=== PATIENT | female | born 1955 | race Two or more races ===

== ENCOUNTER 2016-07-02 07:43 | Day surgery (SDC) | payer OTHER ==
[2016-06-27 13:55] VITALS: BMI 38.8
--- NOTE | 2016-07-02 01:51 | P.GSHP ---
History of Present Illness H&P Date: 07/02/16 CHIEF COMPLAINT: Colon screen HISTORY OF PRESENT ILLNESS: The patient is a 61-year-old female who presents for colon screen. Lower endoscopy was offered for further evaluation and management. PAST MEDICAL HISTORY: Please see list. PAST SURGICAL HISTORY: Please see list. MEDICATIONS: Please see list. ALLERGIES: Please see list. SOCIAL HISTORY: No illicit drug use FAMILY HISTORY: No reports of Crohn disease or ulcerative colitis. REVIEW OF ORGAN SYSTEMS: CONSTITUTIONAL: No reports of fevers or chills. PHYSICAL EXAM: VITAL SIGNS: Stable GENERAL: Well-developed pleasant in no acute distress. HEENT: No scleral icterus. Extraocular movements grossly intact. Moist buccal mucosa. NECK: Supple without lymphadenopathy. CHEST: Unlabored respirations. Equal bilateral excursions. CARDIOVASCULAR: Regular rate and rhythm. Distal 2+ pulses. ABDOMEN: Soft, nontender, nondistended. MUSCULOSKELETAL: No clubbing, cyanosis, or edema. ASSESSMENT: 1. Colon screen. PLAN: 1. Recommend proceeding with a lower endoscopy Past Medical History Past Medical History: Hyperlipidemia, Hypertension, Osteoarthritis (OA), Thyroid Disorder Additional Past Medical History / Comment(s): rt hip pain History of Any Multi-Drug Resistant Organisms: None Reported Past Surgical History: Back Surgery, Breast Surgery, Cholecystectomy, Hysterectomy, Joint Replacement, Tubal Ligation Additional Past Surgical History / Comment(s): mega hip replacements, lt breast biopsy, lumbar surgery with cage L4-L5 Past Anesthesia/Blood Transfusion Reactions: No Reported Reaction Smoking Status: Never smoker Past Alcohol Use History: None Reported Past Drug Use History: None Reported - Past Family History Father Family Medical History: Coronary Artery Disease (CAD), CVA/TIA Brother(s) Family Medical History: Myocardial Infarction ([place]) Medications and Allergies Home Medications Medication Instructions Recorded Confirmed Type Acetaminophen Tab [Tylenol Tab] 650 mg PO Q4H PRN 06/27/16 06/27/16 History Aspirin 325 mg PO DAILY 06/27/16 06/27/16 History Fish Oil/Dha/Epa [Fish Oil 1,200 1 each PO DAILY 06/27/16 06/27/16 History mg Fish Oil] Hydrochlorothiazide 25 mg PO DAILY 06/27/16 06/27/16 History Ibuprofen [Motrin] 800 mg PO DAILY PRN 06/27/16 06/27/16 History Levothyroxine Sodium [Levoxyl] 88 mcg PO DAILY 06/27/16 06/27/16 History Lisinopril [Zestril] 10 mg PO HS 06/27/16 06/27/16 History Loratadine 10 mg PO HS 06/27/16 06/27/16 History Lovastatin [Mevacor] 20 mg PO HS 06/27/16 06/27/16 History Multivitamins, Thera [Multivitamin 1 tab PO DAILY 06/27/16 06/27/16 History (formulary)] [place]-3 Fatty Acids [[place]-3] 600 mg PO DAILY 06/27/16 06/27/16 History Potassium Chloride [Klor-Con 10] 10 meq PO DAILY 06/27/16 06/27/16 History traMADol HCl [Ultram] 50 mg PO Q4-6H PRN 06/27/16 06/27/16 History Allergies Allergy/AdvReac Type Severity Reaction Status Date / Time sulfamethoxazole Allergy itching, Verified 06/27/16 13:26 [From Bactrim] and feet peeled trimethoprim [From Bactrim] Allergy itching, Verified 06/27/16 13:26 and feet peeled
[~2016-07-02 07:43] MED LIST: LACTATED RINGERS 1,000 ML IV SCH; LIDOCAINE 1% 20 ML VIAL (10MG/ML) FOR IV START INTRADERMA PRN
[2016-07-02 09:10] VITALS: RESP 18; TEMP 97.1
[2016-07-02] MEDS ORDERED: PROPOFOL 10 MG/ML 20 ML VIAL IV ONE (09:37)
[2016-07-02] MEDS ORDERED: LIDOCAINE 1% INJ 10MG/ML (20 ML MDV) ONE (09:37)
--- NOTE | 2016-07-02 09:57 | P.PCN ---
Date of Procedure: 07/02/16 Description of Procedure: PREOPERATIVE DIAGNOSIS: Colonoscopy screening. POSTOPERATIVE DIAGNOSIS: Colonoscopy screening. OPERATION: Colonoscopy to the ileocecal valve and appendiceal orifice. SURGEON: Georgia Burnett MD. ANESTHESIA: MAC. INDICATIONS: The patient is a 61-year-old female who presents for colonoscopy screening. Benefits and risks were described and informed consent was obtained. DESCRIPTION OF PROCEDURE: The patient had undergone Gatorade, MiraLAX and Dulcolax prep. He had been brought into the operating room and laid in the left lateral decubitus position. After adequate intravenous sedation, the rectum was examined with 2% lidocaine jelly. No external hemorrhoids were encountered. The rectal tone was within normal limits. No lesions were palpated in the rectal vault. An Olympus colonoscope was advanced until the ileocecal valve and appendiceal orifice were clearly viewed. The prep was excellent with clear visualization of the mucosal folds. The scope was removed with visualization of each mucosal fold. Scattered diverticulosis was encountered. No colonic polyps were found. No evidence of focal colitis was found. Retroflexion of the scope demonstrated grade 1 internal hemorrhoids without active bleeding or inflammation. The colon was desufflated. The patient had tolerated the procedure well. Withdrawal time was over 6 minutes. FINDINGS: Internal hemorrhoids, grade 1 No external prolapsed hemorrhoids. No arteriovenous malformations. No adenomatous polyps. No focal colitis. RECOMMENDATIONS: Lower endoscopy every 10 years per screening guidelines, 2026. Plan - Discharge Summary Discharge Medication List Acetaminophen Tab [Tylenol Tab] 650 mg PO Q4H PRN 06/27/16 [History] Aspirin 325 mg PO DAILY 06/27/16 [History] Fish Oil/Dha/Epa [Fish Oil 1,200 mg Fish Oil] 1 each PO DAILY 06/27/16 [History] Hydrochlorothiazide 25 mg PO DAILY 06/27/16 [History] Ibuprofen [Motrin] 800 mg PO DAILY PRN 06/27/16 [History] Levothyroxine Sodium [Levoxyl] 88 mcg PO DAILY 06/27/16 [History] Lisinopril [Zestril] 10 mg PO HS 06/27/16 [History] Loratadine 10 mg PO HS 06/27/16 [History] Lovastatin [Mevacor] 20 mg PO HS 06/27/16 [History] Multivitamins, Thera [Multivitamin (formulary)] 1 tab PO DAILY 06/27/16 [History ] [place]-3 Fatty Acids [[place]-3] 600 mg PO DAILY 06/27/16 [History] Potassium Chloride [Klor-Con 10] 10 meq PO DAILY 06/27/16 [History] traMADol HCl [Ultram] 50 mg PO Q4-6H PRN 06/27/16 [History] Follow up Appointment(s)/Referral(s): Georgia Burnett MD [STAFF PHYSICIAN] - As Needed (May follow-up as needed [place]) Patient Instructions/Handouts: *[facility] - (Anesthesia) Endoscopy Discharge Instructions Activity/Diet/Wound Care/Special Instructions: Follow-up colonoscopy at age of 71, 2026, in 10 years. Discharge Disposition: HOME SELF-CARE
[2016-07-02 10:52] VITALS: BP 131/74; PULSE 62
== END 2016-07-02 11:17 | disposition home or self-care (01) ==
LOC: ORWHC2ENDO 07:43
PROVIDERS: ATTEND Surgery Plastic and Reconstructive Surgery
DX: Z12.11 Encounter for screening for malignant neoplasm of colon (principal); K57.30 Diverticulosis of large intestine without perforation or abscess without bleeding; K64.0 First degree hemorrhoids; E78.5 Hyperlipidemia, unspecified; I10 Essential (primary) hypertension; M19.90 Unspecified osteoarthritis, unspecified site; E07.9 Disorder of thyroid, unspecified; Z79.82 Long term (current) use of aspirin; Z79.899 Other long term (current) drug therapy; Z88.2 Allergy status to sulfonamides
CPT/HCPCS: J2001; J2704; G0121

== ENCOUNTER 2018-10-08 13:38 | Day surgery (SDC) | payer MEDICARE, OTHER ==
[2018-10-06 15:10] VITALS: BMI 37.8
--- NOTE | 2018-10-08 07:44 | P.GSHP ---
History of Present Illness H&P Date: 10/08/18 CHIEF COMPLAINT: History of intra-abdominal adhesions HISTORY OF PRESENT ILLNESS: The patient is a 63-year-old female who presents with history of intra-abdominal adhesions from multiple prior surgeries including increasing abdominal pain. She now presents for diagnostic laparoscopy including lysis of adhesions. PAST MEDICAL HISTORY: Please see list. PAST SURGICAL HISTORY: Please see list. MEDICATIONS: Please see list. ALLERGIES: Please see list. SOCIAL HISTORY: No illicit drug use FAMILY HISTORY: No reports of Crohn disease or ulcerative colitis. REVIEW OF ORGAN SYSTEMS: CONSTITUTIONAL: No reports of fevers or chills. GI: Denies any blood in stools or constipation. PHYSICAL EXAM: VITAL SIGNS: Stable GENERAL: Well-developed pleasant and in no acute distress. HEENT: No scleral icterus. Extraocular movements grossly intact. Moist buccal mucosa. NECK: Supple without lymphadenopathy. CHEST: Unlabored respirations. Equal bilateral excursions. CARDIOVASCULAR: Regular rate and rhythm. Distal 2+ pulses. ABDOMEN: Soft, diffuse abdominal tenderness. No peritonitis. MUSCULOSKELETAL: No clubbing, cyanosis, or edema. ASSESSMENT: 1. Diffuse abdominal pain. 2. History of multiple abdominal surgeries. 3. Intra-abdominal adhesions. PLAN: 1. Robotic lysis of adhesions were described in detail including risk of injury to the intestine, need for further surgery, and open technique. 2. DVT prophylaxis. 3. Antibiotic prophylaxis. Past Medical History Past Medical History: Hyperlipidemia, Hypertension, Osteoarthritis (OA), Thyroid Disorder Additional Past Medical History / Comment(s): . History of Any Multi-Drug Resistant Organisms: None Reported Past Surgical History: Back Surgery, Breast Surgery, Cholecystectomy, Hysterectomy, Joint Replacement, Tubal Ligation Additional Past Surgical History / Comment(s): mega hip replacements, lt breast biopsy, lumbar surgery with cage L4-L5, surgery L2 and L3, rt hip revision, rt elbow surgery Past Anesthesia/Blood Transfusion Reactions: No Reported Reaction Smoking Status: Never smoker - Past Family History Father Family Medical History: Coronary Artery Disease (CAD), CVA/TIA Brother(s) Family Medical History: Myocardial Infarction ([place]) Mother Family Medical History: No Reported History Medications and Allergies Home Medications Medication Instructions Recorded Confirmed Type Acetaminophen Tab [Tylenol Tab] 650 mg PO Q4H PRN 06/27/16 10/06/18 History Aspirin 325 mg PO HS 06/27/16 10/06/18 History Fish Oil/Dha/Epa [Fish Oil 1,200 1 each PO W/LUNCH 06/27/16 10/06/18 History mg Fish Oil] Hydrochlorothiazide 25 mg PO W/LUNCH 06/27/16 10/06/18 History Ibuprofen [Motrin] 800 mg PO DAILY PRN 06/27/16 10/06/18 History Levothyroxine Sodium [Levoxyl] 88 mcg PO AC-BRKFST 06/27/16 10/06/18 History Lisinopril [Zestril] 10 mg PO HS 06/27/16 10/06/18 History Loratadine 10 mg PO W/LUNCH 06/27/16 10/06/18 History Lovastatin [Mevacor] 20 mg PO HS 06/27/16 10/06/18 History Multivitamins, Thera [Multivitamin 1 tab PO W/LUNCH 06/27/16 10/06/18 History (formulary)] Potassium Chloride [Klor-Con 10] 10 meq PO W/LUNCH 06/27/16 10/06/18 History traMADol HCl [Ultram] 50 mg PO Q4-6H PRN 06/27/16 10/06/18 History Cholecalciferol (Vitamin D3) 5,000 unit PO W/LUNCH 10/06/18 10/06/18 History [Vitamin D3] Magnesium 400 mg PO W/LUNCH 10/06/18 10/06/18 History Ubidecarenone [Co Q-10] 200 mg PO W/LUNCH 10/06/18 10/06/18 History Allergies Allergy/AdvReac Type Severity Reaction Status Date / Time sulfamethoxazole Allergy itching, Verified 10/06/18 14:53 [From Bactrim] and feet peeled trimethoprim [From Bactrim] Allergy itching, Verified 10/06/18 14:53 and feet peeled
[~2018-10-08 13:38] MED LIST changes: +HEPARIN SODIUM,PORCINE 5,000 UNIT/ML 1 ML VIAL SQ ONE; +HYDROmorphone 0.5 MG/0.5 ML SYRINGE IVP PRN; -LIDOCAINE 1% 20 ML VIAL (10MG/ML) FOR IV START INTRADERMA PRN; +ONDANSETRON 4 MG/2 ML VIAL IVP PRN; +Pre Op ABX Message 1 EACH MISC MISCELLANE ONE
[2018-10-08] MEDS ORDERED: LIDOCAINE 1% 20 ML VIAL (10MG/ML) FOR IV START INTRADERMA ONE (14:09)
[2018-10-08] MEDS ORDERED: DEXAMETHASONE SOD PHOSPHATE 10 MG/ML 1 ML VIAL IV ONE (14:23)
[2018-10-08 15:10] LABS: ALT 28 U/L (9-52); AST 35 U/L (14-36); African American GFR (CKD) >90 (>60 ml/min/1.73 sqM); Albumin 4.3 g/dL (3.5-5.0); Alkaline Phosphatase 81 U/L (38-126); Anion Gap 8 mmol/L; Blood Urea Nitrogen 18 mg/dL (7-17); Calcium 9.6 mg/dL (8.4-10.2); Carbon Dioxide 27 mmol/L (22-30); Chloride 106 mmol/L (98-107); Glucose 96 mg/dL (74-99); Potassium 3.9 mmol/L (3.5-5.1); Sodium 141 mmol/L (137-145); Total Bilirubin 0.5 mg/dL (0.2-1.3); Total Protein 7.2 g/dL (6.3-8.2)
[2018-10-08 15:14] LABS: Basophils % (A) 0 %; Eosinophils # (A) 0.2 k/uL (0-0.7); Eosinophils % (A) 2 %; HCT 44.3 % (34.0-46.0); HGB 14.3 gm/dL (11.4-16.0); Lymphocytes # (A) 1.9 k/uL (1.0-4.8); Lymphocytes % (A) 27 %; MCH 29.8 pg (25.0-35.0); MCHC 32.3 g/dL (31.0-37.0); MCV 92.3 fL (80.0-100.0); Mean Platelet Volume 7.5; Monocytes # (A) 0.4 k/uL (0-1.0); Monocytes % (A) 6 %; Neutrophils # (A) 4.3 k/uL (1.3-7.7); Neutrophils % (A) 63 %; Platelet Count 331 k/uL (150-450); RDW 15.1 % (11.5-15.5); WBC 6.9 k/uL (3.8-10.6)
[2018-10-08] MEDS ORDERED: fentaNYL (PF) 50 MCG/ML 2 ML AMP ONE (15:30)
[2018-10-08] MEDS ORDERED: MIDAZOLAM 2 MG/2 ML VIAL ONE (15:30)
[2018-10-08] MEDS ORDERED: LIDOCAINE 1% INJ 10MG/ML (20 ML MDV) ONE (15:30)
[2018-10-08] MEDS ORDERED: ROCURONIUM BROMIDE 10 MG/ML 10 ML VIAL IV ONE (15:30)
[2018-10-08] MEDS ORDERED: KETOROLAC 30 MG/ML 1 ML VIAL ONE (15:30)
[2018-10-08] MEDS ORDERED: GLYCOPYRROLATE 0.2 MG/ML 2 ML VIAL ONE (15:30)
[2018-10-08] MEDS ORDERED: NEOSTIGMINE 1 MG/ML 10 ML VIAL ONE (15:30)
[2018-10-08] MEDS ORDERED: PROPOFOL 10 MG/ML 20 ML VIAL IV ONE (15:30)
[2018-10-08] MEDS ORDERED: BUPIVACAINE (PF) 0.25% 30 ML VIAL SQ ONE (15:58)
[2018-10-08 17:03] VITALS: TEMP 97.7
[2018-10-08] MEDS ORDERED: LACTATED RINGERS 1,000 ML IV ONE (17:04)
--- NOTE | 2018-10-08 17:17 | P.OP ---
Date of Procedure: 10/08/18 Description of Procedure: Date of Procedure: 10/08/18 SURGEON: GEORGIA BURNETT MD PREOPERATIVE DIAGNOSES: 1. Right upper quadrant abdominal pain 2. Right lower quadrant abdominal pain 3. History of open cholecystectomy 4. History of multiple abdominal procedures 5. History of peritoneal adhesions 6. Hypertensive heart disease 7. Hyperlipidemia 8. Hypothyroidism POSTOPERATIVE DIAGNOSES: 1. Right upper quadrant abdominal pain 2. Right lower quadrant abdominal pain 3. History of open cholecystectomy 4. History of multiple abdominal procedures 5. History of peritoneal adhesions 6. Hypertensive heart disease 7. Hyperlipidemia 8. Hypothyroidism OPERATION: 1. Robotic-assisted da Barbara Xi laparoscopic extensive lysis of adhesions over 45 minutes Anesthesia: GETA, local Estimated Blood Loss (ml): 5 Pathology: none sent Condition: stable Disposition: same day Operative Findings: 1. In the preoperative area, patient was marked at specific locations of pain at the right upper quadrant and right lower quadrant with pulling sensation described 2. Moderate peritoneal adhesions worse along the right lower quadrant and separate along the right upper quadrant identified confirming patient's symptoms. INDICATIONS: The patient is a 63-year-old female who presents with severe right upper and lower quadrant abdominal pain. She has history of multiple abdominal surgeries. Robotic assisted laparoscopic approach was described. Benefits and risks of the procedure including but not limited to bleeding, infection, injury to the small bowel was described. Informed consent was obtained. DESCRIPTION OF PROCEDURE: Patient was brought to the operating room, placed in supine position. After general induction, the abdomen had been prepped and draped in standard sterile fashion. The robotic da Barbara XI system was primed. After a timeout protocol was performed, the patient had been prepped and draped in standard sterile fashion. The robot was docked along the right lateral abdomen. The patient was repositioned in Trendelenburg position of 10 degrees. A 5 mm 0 degrees laparoscopic trocar entry was performed along the left upper quadrant. The abdomen was insufflated to 15 mmHg pressure which she tolerated well. Diagnostic laparoscopy demonstrated severe intra-abdominal adhesions involving the right lower and right upper quadrants. The small bowel was unremarkable without evidence of dilation or suggestion of obstruction. No injury to the bowel, viscera or mesentery was identified. Next, three 8 mm robotic ports were placed along the left lateral abdominal wall. The 5 mm trocar was exchanged for 8 mm port. Please note that the ports were placed at least 8 cm away from the target anatomy. Instruments were interchanged using only 3 ports for a grasper, vessel sealer, and scissors with cautery. Instruments were interchanged by the medical assistant instructor including Bovie cautery scissors. I had sat at the console. The camera was positioned along the left lateral abdominal wall. Extensive lysis of adhesions over 45 minutes was performed. Carefully the adhesions were taken down without injury to the small bowel using vessel sealer and cautery on scissors. No involvement of small bowel was found. Hemostasis was excellent and abdomen was dry upon completion. The robot was undocked. All pneumoperitoneum and instruments were evacuated from the abdominal cavity. The incisions were reapproximated using 4-0 Monocryl in an interrupted subcuticular fashion. Please note along the trocar sites, local anesthetic was placed as a field block prior to insertion of all instruments. Liquid glue was applied to the skin. At the end of the procedure needle, sponge, and instrument count had been verified correct by the surgical technology instructor. The patient was transferred to postanesthesia care unit in stable condition. Intraoperative images including findings were described to the patients family. Plan - Discharge Summary Discharge Rx Participant: No New Discharge Prescriptions: Continue Lovastatin [Mevacor] 20 mg PO HS Lisinopril [Zestril] 10 mg PO HS Levothyroxine Sodium [Levoxyl] 88 mcg PO AC-BRKFST traMADol HCl [Ultram] 50 mg PO Q4-6H PRN PRN Reason: Pain Fish Oil/Dha/Epa [Fish Oil 1,200 mg Fish Oil] 1 each PO W/LUNCH Multivitamins, Thera [Multivitamin (formulary)] 1 tab PO W/LUNCH Aspirin 325 mg PO HS Loratadine 10 mg PO W/LUNCH Ibuprofen [Motrin] 800 mg PO DAILY PRN PRN Reason: Pain Acetaminophen Tab [Tylenol] 650 mg PO Q4H PRN PRN Reason: Pain Cholecalciferol (Vitamin D3) [Vitamin D3] 5,000 unit PO W/LUNCH Ubidecarenone [Co Q-10] 200 mg PO W/LUNCH Discontinued Potassium Chloride [Klor-Con 10] 10 meq PO W/LUNCH Hydrochlorothiazide 25 mg PO W/LUNCH Magnesium 400 mg PO W/LUNCH Discharge Medication List Acetaminophen Tab [Tylenol] 650 mg PO Q4H PRN 06/27/16 [History] Aspirin 325 mg PO HS 06/27/16 [History] Fish Oil/Dha/Epa [Fish Oil 1,200 mg Fish Oil] 1 each PO W/LUNCH 06/27/16 [History] Ibuprofen [Motrin] 800 mg PO DAILY PRN 06/27/16 [History] Levothyroxine Sodium [Levoxyl] 88 mcg PO AC-BRKFST 06/27/16 [History] Lisinopril [Zestril] 10 mg PO HS 06/27/16 [History] Loratadine 10 mg PO W/LUNCH 06/27/16 [History] Lovastatin [Mevacor] 20 mg PO HS 06/27/16 [History] Multivitamins, Thera [Multivitamin (formulary)] 1 tab PO W/LUNCH 06/27/16 [History] traMADol HCl [Ultram] 50 mg PO Q4-6H PRN 06/27/16 [History] Cholecalciferol (Vitamin D3) [Vitamin D3] 5,000 unit PO W/LUNCH 10/06/18 [History] Ubidecarenone [Co Q-10] 200 mg PO W/LUNCH 10/06/18 [History] Follow up Appointment(s)/Referral(s): Georgia Burnett MD [STAFF PHYSICIAN] - 10/19/18 Patient Instructions/Handouts: *[facility] - (Anesthesia) Discharge Inst ructions Outpatient Surgery, Lysis of Abdominal Adhesions (IP) Activity/Diet/Wound Care/Special Instructions: May shower. No bath tub soaks for 10 days until 10/18/2018. No lifting over 10 pounds for 10 days through 10/18/2018. Please take home pain medications including ibuprofen and Tylenol as needed for pain. Discharge Disposition: HOME SELF-CARE
[2018-10-08 17:56] VITALS: RESP 17
[2018-10-08 18:12] VITALS: BP 126/80; PULSE 63
== END 2018-10-08 18:20 | disposition home or self-care (01) ==
LOC: OR 13:38
PROVIDERS: ATTEND Surgery Plastic and Reconstructive Surgery
DX: K66.0 Peritoneal adhesions (postprocedural) (postinfection) (principal); Z90.49 Acquired absence of other specified parts of digestive tract; I11.9 Hypertensive heart disease without heart failure; E78.5 Hyperlipidemia, unspecified; M19.90 Unspecified osteoarthritis, unspecified site; E03.9 Hypothyroidism, unspecified; Z79.1 Long term (current) use of non-steroidal anti-inflammatories (NSAID); Z79.82 Long term (current) use of aspirin; Z79.890 Hormone replacement therapy; Z79.891 Long term (current) use of opiate analgesic; Z79.899 Other long term (current) drug therapy; Z88.2 Allergy status to sulfonamides; Z96.643 Presence of artificial hip joint, bilateral; Z98.51 Tubal ligation status; Z90.710 Acquired absence of both cervix and uterus; Z82.3 Family history of stroke; Z82.49 Family history of ischemic heart disease and other diseases of the circulatory system
CPT/HCPCS: 49329; 80053; 85025; J2250; J1644; J1100; J2710; J0690; J2405; J2001; J3010; J1885; J2704

== ENCOUNTER 2020-05-31 06:57 | Day surgery (SDC) | payer MEDICARE, OTHER ==
[2020-05-28 12:07] VITALS: BMI 37.2
--- NOTE | 2020-05-31 04:43 | P.GSHP ---
History of Present Illness H&P Date: 05/31/20 CHIEF COMPLAINT: Colon screen HISTORY OF PRESENT ILLNESS: The patient is a 64-year-old female who presents for colon screen. Lower endoscopy was offered for further evaluation and management. PAST MEDICAL HISTORY: Please see list. PAST SURGICAL HISTORY: Please see list. MEDICATIONS: Please see list. ALLERGIES: Please see list. SOCIAL HISTORY: No illicit drug use FAMILY HISTORY: No reports of Crohn disease or ulcerative colitis. REVIEW OF ORGAN SYSTEMS: CONSTITUTIONAL: No reports of fevers or chills. PHYSICAL EXAM: VITAL SIGNS: Stable GENERAL: Well-developed pleasant in no acute distress. HEENT: No scleral icterus. Extraocular movements grossly intact. Moist buccal mucosa. NECK: Supple without lymphadenopathy. CHEST: Unlabored respirations. Equal bilateral excursions. CARDIOVASCULAR: Regular rate and rhythm. Distal 2+ pulses. ABDOMEN: Soft, nontender, nondistended. MUSCULOSKELETAL: No clubbing, cyanosis, or edema. ASSESSMENT: 1. Colon screen. PLAN: 1. Recommend proceeding with a lower endoscopy Past Medical History Past Medical History: Hyperlipidemia, Hypertension, Musculoskeletal Disorder, Osteoarthritis (OA), Thyroid Disorder Additional Past Medical History / Comment(s): Back pain. Tingling in pinky finger right hand, bilateral carpal tunnel. Hemorrhoid. History of Any Multi-Drug Resistant Organisms: None Reported Past Surgical History: Back Surgery, Breast Surgery, Cholecystectomy, Hysterectomy, Joint Replacement, Tubal Ligation Additional Past Surgical History / Comment(s): Bilateral hip replacements, left breast biopsy, lumbar surgery with cage L4-L5, surgery L2-L3, right hip revision, right elbow surgery. Past Anesthesia/Blood Transfusion Reactions: No Reported Reaction Past Psychological History: No Psychological Hx Reported Smoking Status: Never smoker Past Alcohol Use History: None Reported Past Drug Use History: None Reported - Past Family History Father Family Medical History: Coronary Artery Disease (CAD), CVA/TIA Brother(s) Family Medical History: Myocardial Infarction ([place]) Mother Family Medical History: No Reported History Medications and Allergies Home Medications Medication Instructions Recorded Confirmed Type Aspirin 325 mg PO HS 06/27/16 05/28/20 History Fish Oil/Dha/Epa [Fish Oil 1,200 1 each PO W/LUNCH 06/27/16 05/28/20 History mg Fish Oil] Ibuprofen [Motrin] 800 mg PO DAILY PRN 06/27/16 05/28/20 History Levothyroxine Sodium [Levoxyl] 88 mcg PO AC-BRKFST 06/27/16 05/28/20 History Loratadine 10 mg PO W/LUNCH 06/27/16 05/28/20 History Lovastatin [Mevacor] 20 mg PO HS 06/27/16 05/28/20 History lisinopriL [Zestril] 10 mg PO HS 06/27/16 05/28/20 History Cholecalciferol (Vitamin D3) 5,000 unit PO W/LUNCH 10/06/18 05/28/20 History [Vitamin D3] Ubidecarenone [Co Q-10] 200 mg PO W/LUNCH 10/06/18 05/28/20 History Ascorbic Acid [Vitamin C] 1,000 mg PO DAILY 05/28/20 05/28/20 History Eye Health Complex 1 tab PO DAILY 05/28/20 05/28/20 History Magnesium 400 mg PO DAILY 05/28/20 05/28/20 History Potassium Chloride [Klor-Con 10] 10 meq PO DAILY 05/28/20 05/28/20 History Vit C/E/Zn/Coppr/Lutein/Zeaxan 1 each PO DAILY 05/28/20 05/28/20 History [Preservision Areds 2 Softgel] Vitamin E 400 unit PO Q48H 05/28/20 05/28/20 History Zinc 5.5 mg PO DAILY 05/28/20 05/28/20 History Zinc 50 mg PO DAILY 05/28/20 05/28/20 History hydroCHLOROthiazide 25 mg PO DAILY 05/28/20 05/28/20 History Allergies Allergy/AdvReac Type Severity Reaction Status Date / Time sulfamethoxazole Allergy itching, Verified 05/28/20 11:43 [From Bactrim] and feet peeled trimethoprim [From Bactrim] Allergy itching, Verified 05/28/20 11:43 and feet peeled Plastic surgical tape Allergy Skin Uncoded 05/28/20 12:18 Blisters
[~2020-05-31 06:57] MED LIST changes: -HEPARIN SODIUM,PORCINE 5,000 UNIT/ML 1 ML VIAL SQ ONE; -HYDROmorphone 0.5 MG/0.5 ML SYRINGE IVP PRN; +LIDOCAINE 1% (10MG/ML) FOR IV START INTRADERMA PRN; -ONDANSETRON 4 MG/2 ML VIAL IVP PRN; -Pre Op ABX Message 1 EACH MISC MISCELLANE ONE
[2020-05-31 07:32] VITALS: RESP 16; TEMP 97.9
[2020-05-31] MEDS ORDERED: LIDOCAINE 1% INJ 10MG/ML (20 ML MDV) ONE (07:57)
[2020-05-31] MEDS ORDERED: PROPOFOL 10 MG/ML 20 ML VIAL IV ONE (07:57)
--- NOTE | 2020-05-31 08:53 | P.PCN ---
Date of Procedure: 05/31/20 Description of Procedure: PREOPERATIVE DIAGNOSIS: Abnormal occult stool study Mother with malignant colon polyp POSTOPERATIVE DIAGNOSIS: Mother with malignant colon polyp Colonoscopy screening. Diverticulosis, scattered. OPERATION: Colonoscopy to the cecum, ileocecal valve and appendiceal orifice. SURGEON: Georgia Burnett MD. ANESTHESIA: MAC. INDICATIONS: The patient is a 64-year-old female who presents for colonoscopy due to abnormal stool occult study. Benefits and risks were described and informed consent was obtained. DESCRIPTION OF PROCEDURE: The patient had undergone Gatorade, MiraLAX and Dulcolax prep. The patient had been brought into the operating room and laid in the left lateral decubitus position. After adequate intravenous sedation, the rectum was examined with 2% lidocaine jelly. No external hemorrhoids were encountered. The rectal tone was within normal limits. No lesions were palpated in the rectal vault. An Olympus colonoscope was advanced until the cecum, ileocecal valve and appendiceal orifice were clearly viewed. The prep was excellent. Scattered diverticulosis was encountered. No colonic polyps were found. No evidence of focal colitis was found. Retroflexion of the scope demonstrated grade 1 internal hemorrhoids without active bleeding or inflammation. The colon was desufflated. The patient had tolerated the procedure well. Withdrawal time was over 6 minutes. FINDINGS: [place] preparation quality scale 2 (1-5) Internal hemorrhoids, grade 1 No external prolapsed hemorrhoids. No arteriovenous malformations. No adenomatous polyps. Scattered diverticulosis No focal colitis. RECOMMENDATIONS: Lower endoscopy in 5 years, 2025 Plan - Discharge Summary Discharge Rx Participant: No New Discharge Prescriptions: Continue Lovastatin [Mevacor] 20 mg PO HS lisinopriL [Zestril] 10 mg PO HS Levothyroxine Sodium [Levoxyl] 88 mcg PO AC-BRKFST Fish Oil/Dha/Epa [Fish Oil 1,200 mg Fish Oil] 1 each PO W/LUNCH Aspirin 325 mg PO HS Loratadine 10 mg PO W/LUNCH Ibuprofen [Motrin] 800 mg PO DAILY PRN PRN Reason: Pain Cholecalciferol (Vitamin D3) [Vitamin D3] 5,000 unit PO W/LUNCH Ubidecarenone [Co Q-10] 200 mg PO W/LUNCH hydroCHLOROthiazide 25 mg PO DAILY Vit C/E/Zn/Coppr/Lutein/Zeaxan [Preservision Areds 2 Softgel] 1 each PO DAILY Potassium Chloride [Klor-Con 10] 10 meq PO DAILY Magnesium 400 mg PO DAILY Eye Health Complex 1 tab PO DAILY Zinc 5.5 mg PO DAILY Zinc 50 mg PO DAILY Vitamin E 400 unit PO Q48H Ascorbic Acid [Vitamin C] 1,000 mg PO DAILY Discharge Medication List Aspirin 325 mg PO HS 06/27/16 [History] Fish Oil/Dha/Epa [Fish Oil 1,200 mg Fish Oil] 1 each PO W/LUNCH 06/27/16 [History] Ibuprofen [Motrin] 800 mg PO DAILY PRN 06/27/16 [History] Levothyroxine Sodium [Levoxyl] 88 mcg PO AC-BRKFST 06/27/16 [History] Loratadine 10 mg PO W/LUNCH 06/27/16 [History] Lovastatin [Mevacor] 20 mg PO HS 06/27/16 [History] lisinopriL [Zestril] 10 mg PO HS 06/27/16 [History] Cholecalciferol (Vitamin D3) [Vitamin D3] 5,000 unit PO W/LUNCH 10/06/18 [History] Ubidecarenone [Co Q-10] 200 mg PO W/LUNCH 10/06/18 [History] Ascorbic Acid [Vitamin C] 1,000 mg PO DAILY 05/28/20 [History] Eye Health Complex 1 tab PO DAILY 05/28/20 [History] Magnesium 400 mg PO DAILY 05/28/20 [History] Potassium Chloride [Klor-Con 10] 10 meq PO DAILY 05/28/20 [History] Vit C/E/Zn/Coppr/Lutein/Zeaxan [Preservision Areds 2 Softgel] 1 each PO DAILY 05/28/20 [History] Vitamin E 400 unit PO Q48H 05/28/20 [History] Zinc 5.5 mg PO DAILY 05/28/20 [History] Zinc 50 mg PO DAILY 05/28/20 [History] hydroCHLOROthiazide 25 mg PO DAILY 05/28/20 [History] Follow up Appointment(s)/Referral(s): Georgia Burnett MD [STAFF PHYSICIAN] - As Needed Patient Instructions/Handouts: *[facility] - (Anesthesia) Endoscopy Discharge Instructions, Colonoscopy (DC), Diverticulosis Diet (GEN), Diverticulosis (DC) Activity/Diet/Wound Care/Special Instructions: Repeat colonoscopy in 5 years, 2025 Discharge Disposition: HOME SELF-CARE
[2020-05-31 08:55] VITALS: BP 116/74; PULSE 59
== END 2020-05-31 09:23 | disposition home or self-care (01) ==
LOC: ORWHC2ENDO 06:57
PROVIDERS: ATTEND Surgery Plastic and Reconstructive Surgery
DX: K57.90 Diverticulosis of intestine, part unspecified, without perforation or abscess without bleeding (principal); K64.0 First degree hemorrhoids; Z80.0 Family history of malignant neoplasm of digestive organs; E78.5 Hyperlipidemia, unspecified; I10 Essential (primary) hypertension; M19.90 Unspecified osteoarthritis, unspecified site; E07.9 Disorder of thyroid, unspecified; G56.03 Carpal tunnel syndrome, bilateral upper limbs; Z90.49 Acquired absence of other specified parts of digestive tract; Z90.710 Acquired absence of both cervix and uterus; Z98.51 Tubal ligation status; Z96.643 Presence of artificial hip joint, bilateral; Z98.890 Other specified postprocedural states; Z82.49 Family history of ischemic heart disease and other diseases of the circulatory system; Z79.82 Long term (current) use of aspirin; Z79.890 Hormone replacement therapy; Z79.899 Other long term (current) drug therapy; Z88.2 Allergy status to sulfonamides; Z91.09 Other allergy status, other than to drugs and biological substances
CPT/HCPCS: 45378; J2001; J2704